=== PATIENT | male | born 1980 | race Caucasian/White ===

== ENCOUNTER 2020-11-01 13:51 | Emergency (ER) | payer OTHER ==
[~2020-11-01] VITALS: Ht 172.7 cm; Wt 99.8 kg
--- NOTE | 2020-11-01 14:00 | NUR ---
at bedside for assessment
[2020-11-01] MEDS ORDERED: MECLIZINE HCL 25 MG TABLET PO ONE (14:15)
[2020-11-01] MEDS ORDERED: MECLIZINE HCL 25 MG TABLET ONE (14:17)
[2020-11-01] MEDS ORDERED: MECL-159 PO (15:08)
--- NOTE | 2020-11-01 15:21 | NUR ---
Patient discharged to home in stable condition. Able to ambulate with steady gait. Written and verbal after care instructions given. Patient verbalizes understanding of instructions. Stressed follow up or return to ER for worsening s/s.
[2020-11-01 15:24] VITALS: BP 138/82
== END 2020-11-01 15:20 | disposition home or self-care (01) ==
LOC: ER 13:51
DX: H83.09 Labyrinthitis, unspecified ear (principal); D32.0 Benign neoplasm of cerebral meninges; F17.210 Nicotine dependence, cigarettes, uncomplicated; R07.89 Other chest pain
CPT/HCPCS: 70450; 71045; 93005; A4663; J8597